=== PATIENT | female | born 1960 | race Caucasian/White ===

== ENCOUNTER 2024-10-15 08:09 | Outpatient (OUT) | payer MEDICARE, OTHER, SELFPAY ==
--- NOTE | 2024-10-15 08:18 | XR_ITS ---
The [address] [address] Patient Name: SUZY SMALL MRN: [id number] date: 1960 Sex: F Assigned Patient Location: [facility] Current Patient Location: [facility] Accession/Order Number: [id number] Exam Date: 10/15/2024 08:26 Report Date: 10/15/2024 14:25 At the request of: KRISTY SEVILLA DPM Procedure: XR foot DANAE min 3V 3 views both feet HISTORY: Chronic right foot tenderness focal months. History of multiple surgeries the right foot. Chronic left foot pain. Left bunion. Right first metatarsal-phalangeal fusion hardware. No complication adequate alignment of the feet. A moderate midfoot degenerative changes. Extensive left first metatarsophalangeal degeneration. 4 mm exposure of the articular surface adjacent soft tissue swelling no acute bony findings. XR/XR foot DANAE min 3V IMPRESSION: No hardware complication. Degenerative change. Left hallux valgus deformity. Impression dictated by: Dennis Larson M.D. 10/15/2024 2:25 PM Dictation Location: [employer] Electronically authenticated by: [id number] Y Date: 10/15/2024 14:25
== END 2024-10-15 08:10 | disposition home or self-care (01) ==
LOC: RAD 08:13
PROVIDERS: PCP Family Medicine; Visit Provider Podiatrist Foot & Ankle Surgery
DX: M79.672 Pain in left foot (principal); M20.12 Hallux valgus (acquired), left foot
CPT/HCPCS: 73630

== ENCOUNTER 2024-11-03 10:55 | Outpatient (OUT) | payer MEDICARE, OTHER, SELFPAY ==
--- OUTSIDE RECORDS SUMMARY | 2024-10-26 09:30 | XMS_ITS | Encounter Summary ---
Author Organization [facility] Address [address] [place] [address] Care Team Providers Care Pattern Technician Name Role Phone NagiSid sanz Bria DO Primary Care Provider [phone] Rasheed Dudley DO Unavailable [phone] Reason for Visit * Reason Comments Gynecologic Exam Medicare off year.LM P: MOOKIE 1997HRT: NoneLast pap 10-21-23 neg.Last mammogram 11-27-23 [facility].Denies breast, urinary, or bowel concerns. Encounter Details Date Type Department Care Team (Late st Contact Info) Description 10/26/2024 9:30 AM EDT [facility] [address] [facility] [address] [place] [phone] Maximilian Leung DO [address] [facility] [address] [place] [address] Vaginal atrophy; Breast cancer screening by mammogram Social History Tobacco Use Types Packs/Day Years Used Date Smoking Tobacco: Former Cigarettes 0.5 10 Q uit: 02/25/2020 Smokeless Tobacco: Never Alcohol Use Standard Drinks/Week Comments Yes 0 (1 standard drink = 0.6 oz pure alcohol) 1-2 drinks less than monthly in the past year, Caffeine intake: 1-2 cups per day coffee, tea AUDIT-C Answer Date Recorded Q1: How often do you have a drink containing alc ohol? Monthly or less 10/26/2024 Q2: How many drinks containi ng alcohol do you have on a typical day when you are drinking? 1 or 2 10/26/2024 Q3: How often do you have si x or more drinks on one occasion? Never 10/26/2024 PHQ-2 Answer Date Recorded Patient Health Questionnaire-2 Score 0 10/26/2024 Comments No Sex and Gender Information Value Date Recorded Sex Assigned at Not on file Legal Sex Female 6:45 PM EDT Gender Identity Not on file Sexual Orientation Not on file documented as of this encounter Last Filed Vital Signs Vital Sign Reading Time Taken Comments Blood Pressure 102/62 10/26/2024 9:16 AM EDT Pulse - - Temperature - - Respiratory Rate - - Oxygen Saturation - - Inhaled Oxygen Concentration - - Weight 68 kg (150 lb) 10/26/2024 9:16 AM EDT Height 167 cm (5' 5.75 ) 10/26/2024 9:16 AM EDT Body Mass Index 24.4 10/26/2024 9:16 AM EDT documented in this encounter Functional Status * Audit-C Score Answer Date of Assessment Author 1 10/26/2024 9:15 AM Pérez Alarcon MA * Question Answer Date of Assessment Author Q1: How often do you have a drink containing alcohol? Monthly or less 10/26/2024 9:15 AM Addis Alarcon sa, MA Q2: How many drinks containing alcohol do you have on a typical day when you are drinking? 1 or 2 10/26/2024 9:15 AM Shawnee Alarcon MA Q3: How often do you have six or more drinks on one occasion? Never 10/26/2024 9:15 AM Shawnee Alarcon MA * Over the past 2 weeks, how often have you been bothered by any of the following problems? Question Answer Date of Assessment Author Little interest or pleasure in doing things Not at all 10/26/2024 9:16 AM Shawnee Alarcon MA Feeling down, depressed, or hopeless Not at all 10/26/2024 9:16 AM Shawnee Alarcon MA Patient Health Questionnaire -2 Score 0 10/26/2024 9:16 AM Shawnee Alarcon MA documented as of this encounter Progress Notes * Anette Rios MA - 10/26/2024 9:30 AM EDT Images from the original note were not included. Maximilian Leung, DO Obstetrics and Gynecology Michelle Nelson 1960 10/26/24 [id number] Yearly Wellness Exam Chief Complaint Patient presents with Gynecologic Exam Medicare off year. LMP: MOOKIE 1997 HRT: None Last pap 10-21-23 neg. Last mammogram 11-27-23 [facility]. Denies breast, urinary, or bowel concerns. Visit Vitals BP 102/62 Ht 5' 5.75 Wt 150 lb BMI 24.40 kg/m?? OB Status Hysterectomy Smoking Status Former BSA 1.78 m?? OB History Para Term AB Living 3 2 1 1 2 SAB IAB Ectopic Multiple Live Births 0 1 2 # Outcome Date GA Lbr Yariel/2nd Weight Sex Type Anes PTL Lv 3 Term 8 lb 15 oz CS-LTranv AMANDA 2 Para 8 lb 10 oz CS-LTranv AMANDA 1 IAB Current Outpatient Medications Medication Sig Dispense Refill alendronate (Fosamax) 70 MG tablet Cholecalciferol (VITAMIN D-3 PO) Take by mouth cyclobenzaprine (Flexeril) 10 MG tablet if needed escitalopram (Lexapro) 10 MG tablet Take 10 mg by mouth Daily escitalopram (Lexapro) 20 MG tablet Take 20 mg by mouth Daily ipratropium (Atrovent) 0.06 % nasal spray Administer 2 sprays into each nostril in the morning and 2 sprays in the evening and 2 sprays before bedtime. 15 mL 3 ipratropium (Atrovent) 0.06 % nasal spray Administer 2 sprays into each nostril every 12 (twelve) hours 15 mL 8 meclizine (Antivert) 25 MG tablet Take 25 mg by mouth every 6 (six) hours if needed for dizziness Multiple Vitamin (multivitamin) tablet Take 1 tablet by mouth Daily rosuvastatin (Crestor) 10 MG tablet Take 10 mg by mouth Daily Tretinoin (Altreno) 0.05 % lotion Apply thin layer to face at bedtime 45 g 11 No current facility-administered medications for this visit. Allergies Allergen Reactions Nsaids GI intolerance Aspirin Nausea Only Codeine Unknown Ibuprofen GI intolerance Prednisone Unknown Past Surgical History: Procedure Laterality Date SECTION, LOW TRANSVERSE x2 COLONOSCOPY x2 EPIDURAL BLOCK INJECTION 2014 3 epidurals-in spine for back FOOT FRACTURE SURGERY Right 2015 FOOT SURGERY Right 2018 screws FOOT SURGERY 05/2021 IR INJECTION Right cortisone-hip SHOULDER SURGERY Right 02/2014 TOE SURGERY Right 2017 great toe - graft - spur removed TOTAL ABDOMINAL HYSTERECTOMY WRIST FRACTURE SURGERY Right 2014 Past Medical History: Diagnosis Date Actinic keratosis Allergic rhinitis Depression Fibroids 1998 History of medical problems 2003 ulcer Hx of herpes simplex infection hx hsv IBS (irritable bowel syndrome) Osteopenia Personal history of other medical treatment tear-right shoulder-steriod shots Seasonal allergies ROS Const: Denies appetite change, fever, chills. Allergy: Denies medication reaction. Ocular: Denies visual acuity change. ENT: Denies hearing change. Endoc: Denies weight loss. Resp: Denies dyspnoea, wheezing. Cardiac: Denies angina, palpitations. GI: Denies nausea, vomiting. Haem: Denies bleeding. : Denies incontinence. MSK: Denies arthralgias, joint oedema. Derm: Denies rash, hair loss. Neuro: Denies ataxia, tremor. Also see HPI for elements of ROS documented therein and for details of positive findings, which shall supersede the foregoing. EXAM GENERAL EXAMINATION alert oriented well developed, well nourished. HEAD: normocephalic atraumatic. EYES: sclera anicteric. EARS: no obvious hearing deficit. NECK/THYROID: neck supple no cervical lymphadenopathy no thyromegaly. LYMPH NODES: no axillary, supraclavicular or inguinal adenopathy. SKIN: warm and dry. HEART: regular rate and rhythm. LUNGS: clear to auscultation bilaterally. CHEST:axillary nodes grossly normal. BREASTS:no masses palpable bilaterally, normal nipples bilaterally - everted - fatty replaced - dense - well supported- axilla negative. ABDOMEN: soft, nontender, nondistended, no masses palpable. BACK: no costovertebral angle tenderness, no obvious scoliosis/kyphosis. FEMALE GENITOURINARY:heavy duty mechanic in room - mildly atrophic - cuff well supported - no studding or induration - side stein negative - adnex negative, stenotic introitus/ vault RECTAL:normal tone , no masses palpable , only small external hemorrhoids. EXTREMITIES no edema. NEUROLOGIC: alert and oriented. PSYCH: cooperative with exam. ICD-10-CM 1. Vaginal atrophy N95.2 Pelvic and breast exam completed. Findings of today's exam discussed with the patient. Continue MSBE. Ca/Vit D recommendations reviewed with the patient. The patient is to contact the office with anychanges to her gynecological condition or any changes with breast or bleeding. The patient is to return in 1 year or as needed Had colonoscopy last year, was told 10 years 2. Breast cancer screening by mammogram Z12.31 Bilateral screening mammogram with tomosynthesis Screening mammogram ordered. Patient to call and schedule. Entered by Anette Rios MA acting as scribe for Dr. Maximilian Leung. Signature Anette Rios MA Date 10/26/24 . Time 9:38 AM . The documentation recorded by the scribe accurately reflects the service(s) I personally performed and the decisions I made. Signature Flynn Leung D.O. Date 10/26/24 Time 5:00PM. documented in this encounter Plan of Treatment Upcoming Encounters Date Type Department Care Team (Late st Contact Info) Description 12/23/2024 11:00 AM EDT Ancillary Procedure [facility] [address] [place] [phone] 03/21/2025 10:35 AM EST Office Visit [facility] [address] [place] [phone] Charley Hdez, [employer]IC [employer] [address] [place] [address] 11/01/2025 9:30 AM EDT Office Visit [facility] [address] [place] [phone] Maximilian Leung DO [address] [place] [address] Scheduled Orders Name Type Priority Associated Diagnoses Orde r Schedule Bilateral screening mammogram with tomosynthesis Imaging Routine Breast cancer screening by mammogram Expected: 11/27/2024, Expires: 12/26/2025 documented as of this encounter Visit Diagnoses Diagnosis Vaginal atrophy Postmenopausal atrophic vaginitis Breast cancer screening by mammogram documented in this encounter Care Teams Pattern Technician Relationship Specialty Start Date End Date Sid Dominguez DO [address] [place] [address] PCP - General 10/15/22 Rasheed Dudley DO [address] [place] [address] Otolaryngology 04/19/24 documented as of this encounter
--- OUTSIDE RECORDS SUMMARY | 2024-11-03 10:59 | XMS_ITS | Clinical Summary ---
Author Organization [facility] Address [address] [place] [address] Phone Care Team Providers Care Collar Worker Name Role Phone Sid Dominguez DO Primary Care Provider [phone] Social History Tobacco Use Types Packs/Day Years Used Date Smoking Tobacco: Never Assessed Comments Unknown Sex and Gender Information Value Date Recorded Sex Assigned at Not on file Legal Sex Female 3:27 PM EST Gender Identity Not on file Sexual Orientation Not on file Plan of Treatment Not on file Care Teams Collar Worker Relationship Specialty Start Date End Date Sid Dominguez DO PCP - General 07/08/19
--- OUTSIDE RECORDS SUMMARY | 2024-11-03 10:59 | XMS_ITS | Encounter Summary ---
Author Organization [facility] Address [address] [place] [address] Care Team Providers Care Nurseryman Assistant Name Role Phone NagiSid sanz Bria ODELL Primary Care Provider [phone] Asa Chowdhury(Hist) Unavailable [phone] Source Comments In the event this information is protected by the Federal Confidentiality of Alcohol and Drug AbusePatient Records regulations: The Federal rules restrict any use of the information to criminally investigate or prosecute any alcohol or drug abuse patient.[facility] Reason for Visit * Reason Comments Results Michelle Nelson mendoza d to review results of genetic testing ordered in 2022. She knows her initial testing was due to family history of cancer, but has had recent cognitive changes and wanted to discuss whether results of genetic testing may be related. Encounter Details Date Type Department Care Team (Late st Contact Info) Description 10/27/2024 Telephone [facility] [address] [id number] Bridgette Christiansen, [facility] [address] [id number] Results (Michelle Nelson called to review results of genetic testing ordered in 2022. She knows her initial testing was due to family history of cancer, but has had recent cognitive changes and wanted to discuss whether results of genetic testing may be related. ) Social History Tobacco Use Types Packs/Day Years Used Date Smoking Tobacco: Never Assessed Area Deprivation Index Answer Date Evan rded National Score (1-100), lower number is lower ri sk 47 03/09/2022 State Score (1-10), lower number is lower risk N ot on file 03/09/2022 Data from: https://www.neighborhoodatlas.medicine.[facility].edu/. Last address used for calculation [address] 03/09/2022 Comments Unknown Sex and Gender Information Value Date Recorded Sex Assigned at Not on file Legal Sex Female 7:30 AM EDT Gender Identity Not on file Sexual Orientation Not on file documented as of this encounter Plan of Treatment Not on file documented as of this encounter Visit Diagnoses Not on filedocumented in this encounter Care Teams Nurseryman Assistant Relationship Specialty Start Date End Date Sid Dominguez DO [facility] [place] [address] PCP - General Family Medicine 07/17/15 Asa Chowdhury(Hist) [address] [place] [address] [place] [address] Referring 12/04/17 documented as of this encounter
--- OUTSIDE RECORDS SUMMARY | 2024-11-03 10:59 | XMS_ITS | Clinical Summary ---
Author Organization [facility] Address [address] [id number] Care Team Providers Care Instrument Assembly Supervisor Name Role Phone Sid Dominguez Primary Care Provider [phone] Social History Tobacco Use Types Packs/Day Years Used Date Smoking Tobacco: Never Assessed Comments Unknown Sex and Gender Information Value Date Recorded Sex Assigned at Not on file Legal Sex Female 1:50 PM EST Gender Identity Female 01/12/2020 1:55 PM EST Sexual Orientation Straight 01/12/2020 1: 55 PM EST Plan of Treatment Health Maintenance Due Date Last Done Comments CT Colonography 1960 Colonoscopy 1960 Colorectal Cancer Screening/Monitoring 1960 Fecal DNA 1960 Fecal occult blood test (FOBT,FIT) 1960 Tetanus: Every 10yrs 1960 Wellness Visit 1961 Depression Screening/Follow- Up (PHQ-2/9) 1970 Hepatitis C Screening 1976 Pneumococcal Vaccine: Age 50 + (1 of 1 - PCV) 2008 Falls Risk Assessment 10/15/2023 COVID-19 Vaccine (1 - 2023-2 5 season) 2024 Influenza Vaccine (#1) 2024 0, 11/23/2018, 10/29/2018, Additional history exists Respiratory Syncytial Virus Immunization: Risk, 60-74 Risk, or 75+ (1 - 1-dose 75+ series) 2033 Zoster Vaccines Completed 10/29/2019, 03/19/2019 [facility]RPPO Care Teams Instrument Assembly Supervisor Relationship Specialty Start Date End Date Sid Dominguez DO [address] [place] [id number] PCP - General Family Medicine 01/12/20
--- OUTSIDE RECORDS SUMMARY | 2024-11-03 10:59 | XMS_ITS | Clinical Summary ---
Author Organization [facility] Address [facility] [place] [address] Care Team Providers Care Aquatic Habitat Biologist Name Role Phone Angelica Sid Bria ODELL Primary Care Provider [phone] Asa Chowdhury(Hist) Unavailable [phone] Allergies Active Allergy Reactions Criticality Noted Date Comments Aspirin Intolerance 07/17/2015 Medications topiramate (TOPAMAX) 50 mg tablet 07/03/2015 Active cyclobenzaprine (FLEXERIL) 10 mg tablet 06/27/2015 Active clonazePAM (KLONOPIN) 0.5 mg tablet 07/03/2015 Active citalopram (CELEXA) 20 mg tablet Take 20 mg by mouth once daily. Active lactulose 10 gram/15 mL (15 mL) soln Take by mouth. Active pantoprazole DR (PROTONIX) 40 mg tablet Take 40 mg by mouth once daily. Active eluxadoline (VIBERZI) 100 mg tab Take 100 mg by mouth twice daily. 60 tablet 3 07/17/2015 Active Active Problems No known active problems Encounters Date Type Department Care Team Description 10/27/2024 Telephone [facility] [address] [id number] Bridgette Christiansen [facility] Results (Michelle Nelson called to review results of genetic testing ordered in 2022. She knows her initial testing was due to family history of cancer, but has had recent cognitive changes and wanted to discuss whether results of genetic testing may be related. ) from Last 3 Months Family History Medical History Relation Comments Esophageal Cancer Maternal Aunt Hx smoking; ca use of Ovarian cancer Maternal Aunt Breast Cancer Maternal Grandmother Dx 40's or 50's, radical mastectomy Cancer Maternal Grandmother Unknown sit e of origin, metastatic cancer dx in 80's. Cause of . Goiter Maternal Grandmother Cancer Maternal Uncle Skin Cancer Maternal cousin 1 Seizures Maternal cousin 2 Breast Cancer Mother Dx ~40, treated with lumpectomy. New breast lump noted in 50's, but not medically addressed and subsequent stage 4 breast ca diagnosed Diabetes Paternal Uncle 1 in 50' s Relation Status Comments Brother Alive Daughter Alive Father (Age 84) Possible heart attack Granddaughter 1 Alive Granddaughter 2 Alive Grandson 1 Alive Grandson 2 Alive Grandson 3 Alive Maternal Aunt (Age 70) Maternal Grandfather 70 's or 80's (unknown cause) Maternal Grandmother (Age 80) Maternal Uncle (Age 68) Maternal cousin 1 Alive Maternal cousin 2 Maternal cousin 3 Alive Maternal cousin 4 Alive Mother (Age 59) Nephew Alive Other Alive Paternal Aunt Paternal Uncle 1 (Age 50) Paternal Uncle 2 (Age 80) Paternal cousin 1 Alive Paternal cousin 2 Alive Paternal cousin 3 Alive Paternal cousin 4 Alive Paternal cousin 5 Alive Paternal cousin 6 Alive Paternal cousin 7 Alive Paternal cousin 8 Alive Paternal cousin 9 Alive Paternal cousin 10 Alive Paternal cousin 11 Alive Paternal cousin 12 Alive Paternal cousin 13 Alive Paternal cousin 14 Alive Paternal cousin 15 Alive Paternal cousin 16 Alive Paternal cousin 17 Alive Paternal cousin 18 Alive Paternal cousin 19 Alive Paternal cousin 20 Alive Paternal cousin 21 Alive Son Alive Social History Tobacco Use Types Packs/Day Years Used Date Smoking Tobacco: Never Assessed Area Deprivation Index Answer Date Evan rded National Score (1-100), lower number is lower ri sk 47 03/09/2022 State Score (1-10), lower number is lower risk N ot on file 03/09/2022 Data from: https://www.neighborhoodatlas.medicine.[facility].edu/. Last address used for calculation [address] 03/09/2022 Comments Unknown Sex and Gender Information Value Date Recorded Sex Assigned at Not on file Legal Sex Female 7:30 AM EDT Gender Identity Not on file Sexual Orientation Not on file Last Filed Vital Signs Vital Sign Reading Time Taken Comments Blood Pressure 118/70 12/17/2017 5:09 PM EDT Pulse 87 12/17/2017 5:09 PM EDT Temperature - - Respiratory Rate 20 12/17/2017 5:09 PM EDT Oxygen Saturation - - Inhaled Oxygen Concentration - - Weight 83 kg (183 lb) 12/17/2017 5:09 PM EDT Height - - Body Mass Index - - Plan of Treatment Health Maintenance Due Date Last Done Comments Anxiety Screening 1976 Depression Screening 1976 Hepatitis C Screening 1976 DTaP,Tdap,Td Vaccine (1 - Tdap) [address] Colonography 10/15/2003 Cologuard (FIT-DNA) 10/15/2003 Colonoscopy 10/15/2003 Colorectal Cancer Screening 10/15/2003 Diabetes Screening 10/15/2003 Fecal Occult Blood 10/15/2003 Lipid Screening 10/15/2003 Sigmoidoscopy 10/15/2003 Pneumococcal Vaccine: 50+ (2 of 2 - PCV) 11/19/2014 11/19/2013 Bone Density Screening 10/15/2023 Advance Directive Discussion 02/25/2024 Medicare Advantage Annual We llness Visit 02/25/2024 Influenza Vaccine (#1) 2024 2, 11/09/2020, 10/29/2019, Additional history exists RSV Vaccine (1 - 1-dose 75+ series) 2033 Shingrix Vaccine Completed 10/29/2019, 03/19/2019 Insurance [facility] MEDICARE ADVANTAGE PPO Care Teams Aquatic Habitat Biologist Relationship Specialty Start Date End Date Sid Dominguez DO [address] [place] [address] PCP - General Family Medicine 07/17/15 Asa Chowdhury(Hist) [address] [facility] [place] [address] Referring 12/04/17
--- OUTSIDE RECORDS SUMMARY | 2024-11-03 10:59 | XMS_ITS | Encounter Summary ---
Author Organization [facility] Address [address] [place] [address] Care Team Providers Care Slasher Operator Name Role Phone Angelica Sid Bria ODELL Primary Care Provider [phone] Asa Chowdhury(Hist) Unavailable [phone] Source Comments In the event this information is protected by the Federal Confidentiality of Alcohol and Drug AbusePatient Records regulations: The Federal rules restrict any use of the information to criminally investigate or prosecute any alcohol or drug abuse patient.[facility] Encounter Details Date Type Department Care Team (Late st Contact Info) Description 10/15/2023 [place] [address] Provider, [facility] Medicare Coverage of Physical Exams Social History Tobacco Use Types Packs/Day Years Used Date Smoking Tobacco: Never Assessed Area Deprivation Index Answer Date Evan rded National Score (1-100), lower number is lower ri sk 47 03/09/2022 State Score (1-10), lower number is lower risk N ot on file 03/09/2022 Data from: https://www.neighborhoodatlas.medicine.[facility].edu/. Last address used for calculation [address] 03/09/2022 Comments Unknown Sex and Gender Information Value Date Recorded Sex Assigned at Not on file Legal Sex Female 7:30 AM EDT Gender Identity Not on file Sexual Orientation Not on file documented as of this encounter Plan of Treatment Not on file documented as of this encounter Visit Diagnoses Not on filedocumented in this encounter Care Teams Slasher Operator Relationship Specialty Start Date End Date Sid Dominguez DO [address] [place] [address] PCP - General Family Medicine 07/17/15 Asa Chowdhury(Hist) [address] [place] [address] [place] [address] Referring 12/04/17 documented as of this encounter
--- OUTSIDE RECORDS SUMMARY | 2024-11-03 10:59 | XMS_ITS | Continuity of Care Document ---
Author Organization [facility] Address [address] [place] [address] Phone [phone] Care Team Providers Care Chef Teacher Name Role Phone Sid Dominguez DO Care Team Information Hammer Fitter U SAURABH Daniels M.D. Care Team Information Rece iver Unavailable Sid Dominguez DO Primary Care Physician Unavailab le Allergies and adverse reactions Active Allergies Criticality Reaction Severity Comments Date Aspirin Unable to assess criticality tears up stomach Severe 12/22/2017 NSAIDs Unable to assess criticality tears up stomach Severe 12/22/2017 Vital Signs Date Vital Result Comment 12/22/2017 10:38am Weight 186.00 lb Per Patie nt Weight 84.370 kg Height 66 inches 5'6 BMI (Body Mass Index) 30.0 kg/m2
--- OUTSIDE RECORDS SUMMARY | 2024-11-03 10:59 | XMS_ITS | Encounter Summary ---
Author Organization [facility] Address [address] [place] [address] Care Team Providers Care Parts Counter Associate Name Role Phone NagiSid sanz Bria DO Primary Care Provider [phone] Rasheed Dudley DO Unavailable [phone] Encounter Details Date Type Department Care Team (Latest Contact Info) Description 10/26/2024 Travel Social History Tobacco Use Types Packs/Day Years [...] on file documented as of this encounter Functional Status * Audit-C Score Answer Date of Assessment Author 1 10/26/2024 9:15 AM EDT Pérez Albarado MA * Question Answer Date of Assessment Author Q1: How often do you have a drink containing alcohol? Monthly or less 10/26/2024 9:15 AM EDT Addis Albarado sa, [place] Q2: How many drinks containing alcohol do you have on a typical day when you are drinking? 1 or 2 10/26/2024 9:15 AM EDT Shawnee Albarado MA Q3: How often do you have six or more drinks on one occasion? Never 10/26/2024 9:15 AM EDT Shawnee Albarado MA * Over the past 2 weeks, how often have you been bothered by any of the following problems? Question Answer Date of Assessment Author Little interest or pleasure in doing things Not at all 10/26/2024 9:16 AM Shawnee Alarcon M A Feeling down, depressed, or hopeless Not at all 10/26/2024 9:16 AM EDT Shawnee Albarado MA Patient Health Questionnaire -2 Score 0 10/26/2024 9:16 AM EDT Shawnee Albarado MA documented as of this encounter Plan of Treatment Upcoming Encounters Date Type Department Care Team (Late st Contact Info) Description 12/23/2024 11:00 AM EDT Ancillary Procedure [facility] [place] [facility] [address] [place] [id number] 03/21/2025 10:35 AM EST Office Visit [facility] [place] [facility] [address] [place] [phone] Charley Hdez, CTO-DIRECTOR [employer] [address] [place] [address] 11/01/2025 9:30 AM EDT Office Visit [facility] [place] [facility] [address] [place] [phone] Maximilian Leung DO [address] [place] [address] documented as of this encounter Visit Diagnoses Not on filedocumented in this encounter Care Teams Parts Counter Associate Relationship Specialty Start Date End Date Sid Dominguez DO [address] [place] [address] PCP - General 10/15/22 Rasheed Dudley, DO [address] [place] [address] Otolaryngology 04/19/24 documented as of this encounter
--- OUTSIDE RECORDS SUMMARY | 2024-11-03 11:00 | XMS_ITS | Patient Health Record ---
Author Organization [facility] [place] Address [address] [place] [address] Care Team Providers Care Carton Counter Feeder Name Role Phone None, Unknown or Primary Care Provider Unavailab le Allergies Allergen (clinical drug ingredient) Drug/Non Drug Allergy documented on EMR Reaction Allergy Type Onset Date Status aspirin Aspirin stomach upset Drug Allergy Act nika Codeine Phosphate Itching Drug Allergy Active Reason For Referral No Information Medications Medication SIG (Take, Route, Frequency, Duration) Notes Start Date End Date Status Alendronate Sodium 70 MG 1 tablet 30 min utes before the first food, beverage or medicine of the day with plain water Orally Active Lexapro 10 MG 1 tablet Orally Once a day Active Lexapro 20 MG 1 tablet Orally Once a day Active Ozempic ( 0.5 MG/DOSE) 0.5 mg injection as directed Subcutaneous Act nika Rosuvastatin Calcium 10 MG 1 tablet Orally Once a day Active Social History Tobacco Use: Social History Observation Description Date Details (start date - stop date) Former Smoker NA - NA Tobacco Use/Smoking Question Answer Notes Patient is a former smoker Plan Of Treatment No Information Insurance Providers Payer Name Payer Address Payer Phone Subscriber Number Group Number Insured Name Patient Relationship to Insured Coverage Start Date Coverage End Date [employer] [place] [employer] [address] [address] [place] [address] [phone] [id number] Michelle Nelson Self - patient is the insured 3 Medical (General) History Medical History History ICD Code Arthritis of ankle, right M19.071 DVT prophylaxis Z29.9 Acute ankle pain, right M25.571 Acute foot pain, right M79.671 Hallux valgus of right foot M20.11 Retained orthopedic hardware Z96.9 Surgical History Surgery Date(Month/Year) Right 1st MPJ fusion with custom 3D impl ant 06/22/21 Hospitalization History Reason Date(Month/Year) See above
--- OUTSIDE RECORDS SUMMARY | 2024-11-03 11:00 | XMS_ITS | Encounter Summary ---
Author Organization [facility] Address [address] [facility] [place] [address] Care Team Providers Care Cocoa Milling Machine Operator Name Role Phone Sid Dominguez DO Primary Care Provider [phone] Rasheed Dudley DO Unavailable [phone] Encounter Details Date Type Department Care Team (Late st Contact Info) Description 10/15/2022 Abstract [facility] [place] [address] [facility] [address] [place] [phone] Maximilian Leung, [address] [facility] [address] [place] [address] Social History Tobacco Use Types Packs/Day Years Used Date Smoking Tobacco: Former Cigarettes Q uit: 02/25/2020 Smokeless Tobacco: Never Tobacco Cessation:Counseling Given: Not Answered Alcohol Use Standard Drinks/Week Comments Yes 0 (1 standard drink = 0.6 oz pure alcohol) 1-2 drinks less than monthly in the past year, Caffeine intake: 1-2 cups per day coffee, tea AUDIT-C Answer Date Recorded Q1: How often do you have a drink containing alc ohol? Monthly or less 10/15/2022 Q2: How many drinks containi ng alcohol do you have on a typical day when you are drinking? 1 or 2 10/15/2022 Q3: How often do you have si x or more drinks on one occasion? Never 10/15/2022 PHQ-2 Answer Date Recorded Patient Health Questionnaire-2 Score 0 10/15/2022 Comments No Sex and Gender Information Value Date Recorded Sex Assigned at Not on file Legal Sex Female 6:45 PM EDT Gender Identity Not on file Sexual Orientation Not on file documented as of this encounter Functional Status * Audit-C Score Answer Date of Assessment Author 1 10/15/2022 9:29 AM EDT Pérez Albarado MA * Question Answer Date of Assessment Author Q1: How often do you have a drink containing alcohol? Monthly or less 10/15/2022 9:29 AM EDT Addis Albarado sa, MA Q2: How many drinks containing alcohol do you have on a typical day when you are drinking? 1 or 2 10/15/2022 9:29 AM ELYSSAT Shawnee Albarado MA Q3: How often do you have six or more drinks on one occasion? Never 10/15/2022 9:29 AM Shawnee Alarcon MA * Over the past 2 weeks, how often have you been bothered by any of the following problems? Question Answer Date of Assessment Author Little interest or pleasure in doing things Not at all 10/15/2022 9:29 AM Shawnee Alarcon MA Feeling down, depressed, or hopeless Not at all 10/15/2022 9:29 AM Shawnee Alarcon MA Patient Health Questionnaire -2 Score 0 10/15/2022 9:29 AM Shawnee Alarcon MA documented as of this encounter Plan of Treatment Upcoming Encounters Date Type Department Care Team (Late st Contact Info) Description 12/23/2024 11:00 AM EDT [facility]illary [facility] [address] [place] [phone] 03/21/2025 10:35 AM EST [facility] [address] [place] [address] Charley Hdez APRN-AMBER [address] [place] [address] 11/01/2025 9:30 AM EDT [facility] [address] [place] [address] Maximilian Leung, DO [address] [place] [address] documented as of this encounter Visit Diagnoses Not on filedocumented in this encounter Care Teams Cocoa Milling Machine Operator Relationship Specialty Start Date End Date Sid Dominguez DO [address] [place] [phone] PCP - General 10/15/22 Rasheed Dudley, [address] [place] [address] Otolaryngology 04/19/24 documented as of this encounter
--- NOTE | 2024-11-03 11:01 | ECG_ITS ---
[facility] Test Date: 2024-11-03 Pat Name: SUZY SMALL Department: Room: - Gender: Female Home Sales Service Professional: : 1960 Requested By: KRISTY SEVILLA Order Number: [id number] Reading MD: AMI AMAYA Measurements Intervals [place] Rate: 77 P: 55 ME: 199 QRS: 19 QRSD: 81 T: 62 QT: 390 QTc: 443 Interpretive Statements SINUS RHYTHM LOW QRS VOLTAGE IN PRECORDIAL LEADS [QRS DEFLECTION < 1.0 mV IN CHEST LEADS] INFERIOR MYOCARDIAL INFARCTION [40+ ms Q WAVE AND/OR ST/T ABNORMALITY IN II/aVF], OF INDETERMINATE AGE No previous ECG available for comparison Electronically Signed On 11-04-2024 13:53:58 EDT by AMI AMAYA
--- NOTE | 2024-11-03 11:42 | PM.PRESUREVA ---
History of Present Illness History of Present Illness Chief complaint: Left Hallux Rigidus Narrative: Patient presents for presurgical testing. Please see HPI from Dr. Prabhakar dated October 22, 2024. Review of Systems ROS Narrative REVIEW OF SYSTEMS: Negative except as stated in HPI, ten or more systems reviewed. Constitutional: No fever, chills, weakness ENT: No sore throat or epistaxis Cardiovascular: No edema, chest pain, or palpitations; admits to dyspnea on exertion Respiratory: No cough or wheezing Gastrointestinal: No abdominal pain, constipation, diarrhea, or vomiting Genitourinary: No dysuria or hematuria Neurological: No numbness, tingling, weakness, or headache Psychiatric: No mood changes PFSH PFS Medical History (Updated 11/03/24 @ 11:43 by Laura Morton NP) Foot pain ?M79.673 - Pain in unspecified foot (ICD-10) COVID-19 (~10/17/24) ?U07.1 - COVID-19 (ICD-10) Back pain ?M54.9 - Dorsalgia, unspecified (ICD-10) Depression ?F32.A - Depression, unspecified (ICD-10) Anxiety ?F41.9 - Anxiety disorder, unspecified (ICD-10) Hip pain ?M25.559 - Pain in unspecified hip (ICD-10) Seasonal allergies ?J30.2 - Other seasonal allergic rhinitis (ICD-10) Heartburn ?R12 - Heartburn (ICD-10) Dyspnea on exertion ?R06.09 - Other forms of dyspnea (ICD-10) Osteoporosis ?M81.0 - Age-related osteoporosis without current pathological fracture (ICD-10) Arthritis ?M19.90 - Unspecified osteoarthritis, unspecified site (ICD-10) Deformity of left foot ?M21.962 - Unspecified acquired deformity of left lower leg (ICD-10) Hallux rigidus, left foot ?M20.22 - Hallux rigidus, left foot (ICD-10) Surgical History (Updated 11/03/24 @ 11:22 by Laura Morton NP) S/P epidural steroid injection ?Z92.241 - Personal history of systemic steroid therapy (ICD-10) History of arthroscopy of shoulder ?Z98.890 - Other specified postprocedural states (ICD-10) History of hysterectomy ?Z90.710 - Acquired absence of both cervix and uterus (ICD-10) History of section ?Z98.891 - History of uterine scar from previous surgery (ICD-10) History of section ?Z98.891 - History of uterine scar from previous surgery (ICD-10) H/O foot surgery (~2021) ?Z98.890 - Other specified postprocedural states (ICD-10) Family History (Updated 11/03/24 @ 11:22 by Laura Morton NP) Other Family history of cancer Family history of diabetes mellitus Family history of hypertension Social History (Updated 11/03/24 @ 11:16 by Laura Morton NP) Within the past year, how often did you have a drink containing alcohol: 2-3 times a week Smoking status: Former smoker Non-prescribed substance use: cannabis (any form) Highest level of school completed/degree received: high school graduate Meds Home Medications and Allergies Home Medications ?Medication ?Instructions ?Recorded ?Confirmed ?Type alendronate 70 mg tablet 70 mg PO QWEEK 11/03/24 11/03/24 History ascorbic acid (vitamin C) 1,000 mg 1 g PO BID 11/03/24 11/03/24 History capsule calcium 600 mg capsule 600 mg PO BID 11/03/24 11/03/24 History cholecalciferol (vitamin D3) 50 2,000 unit PO DAILY 11/03/24 11/03/24 History mcg (2,000 unit) capsule cyclobenzaprine 10 mg tablet 10 mg PO QPM 11/03/24 11/03/24 History elderberry fruit 200 mg capsule 200 mg PO DAILY 11/03/24 11/03/24 History escitalopram oxalate 10 mg tablet 10 mg PO DAILY 11/03/24 11/03/24 History escitalopram oxalate 20 mg tablet 20 mg PO DAILY 11/03/24 11/03/24 History ipratropium bromide 42 mcg (0.06 2 spray intranasal DAILY 11/03/24 11/03/24 History %) nasal spray multivitamin (Daily Multi-Vitamin 1 tab PO DAILY 11/03/24 11/03/24 History tablet) rosuvastatin 10 mg tablet 10 mg PO DAILY 11/03/24 11/03/24 History semaglutide 0.25 mg or 0.5 mg (2 0.25 mg subcut QWEEK 11/03/24 11/03/24 History mg/3 mL) subcutaneous pen injector (Ozempic) Allergies Allergy/AdvReac Type Severity Reaction Status Date / Time aspirin Allergy Nausea Verified 11/03/24 11:07 avocado Allergy Abdominal Verified 11/03/24 11:10 Pain banana Allergy Abdominal Verified 11/03/24 11:10 Pain codeine Allergy Nausea Verified 11/03/24 11:07 prednisone Allergy itchy Verified 11/03/24 11:10 Exam Narrative Exam Narrative: Constitutional: Awake, alert, comfortable, well-appearing, nontoxic, interactive, vital signs as charted Head: Normocephalic, atraumatic Neck: Supple, normal appearance, normal range of motion, no meningeal signs, no lymphadenopathy Respiratory: No respiratory distress, breath sounds clear Cardiovascular: Regular rate and rhythm, strong and regular heart tones Abdomen: Nontender, normal bowel sounds, soft Skin: No rashes or induration, no lesions, only visible skin inspected Neuro: No neurological deficits, normal sensation Psychiatric: Oriented ?3, normal affect Assessment and Plan Assessment and Plan (1) Hallux rigidus, left foot: (2) Deformity of left foot: (3) Foot pain: Plan First MPJ fusion with possible bone graft scheduled with Dr. Prabhakar November 09, 2024.
== END 2024-11-03 10:56 | disposition home or self-care (01) ==
LOC: PST 10:57
PROVIDERS: PCP Family Medicine; Visit Provider Podiatrist Foot & Ankle Surgery
DX: Z01.810 Encounter for preprocedural cardiovascular examination (principal); Z01.818 Encounter for other preprocedural examination; M20.22 Hallux rigidus, left foot
CPT/HCPCS: 93005; G0463

== ENCOUNTER 2024-11-30 09:32 | Outpatient (OUT) | payer MEDICARE, OTHER, SELFPAY ==
--- OUTSIDE RECORDS SUMMARY | 2024-11-18 20:18 | XMS_ITS | Continuity of Care Document ---
Author Organization [facility] [place] Address [address] [place] [address] Phone Care Team Providers Care Watch Caser Name Role Phone Angelica Sid ODELL Primary Care Provider Sid Dominguez DO Attending Provider Keshawn Calderon II, MD Attending Provider [phone] Sung Spence MD Attending Provider Dewey PrabhakarM Referring Provider [phone] Care Teams Patient Care Team Team Status: Active Member Role Status Dates Maximilian Leung DO Specialist Active Sid Dominguez DO Primary Care Provider Active Visit Care Team Team Status: Inactive Member Role Status Dates Sid Dominguez DO Primary Care Provider Active Sta rt: September 14, 2024 End: September 14, 2024 Sid Dominguez DO Attending Provider Active Start: September 14, 2024 End: September 14, 2024 Visit Care Team Team Status: Inactive Member Role Status Dates Sid Dominguez DO Primary Care Provider Active Sta rt: September 21, 2024 End: September 21, 2024 Sid Dominguez DO Attending Provider Active Start: September 21, 2024 End: September 21, 2024 Visit Care Team Team Status: Inactive Member Role Status Dates Sid Dominguez DO Primary Care Provider Active Sta rt: October 21, 2024 End: October 21, 2024 Keshawn Calderon II, MD Attending Provider Active Start: October 21, 2024 End: October 21, 2024 Visit Care Team Team Status: Inactive Member Role Status Dates Sid Dominguez DO Primary Care Provider Active Sta rt: October 21, 2024 End: October 21, 2024 Keshawn Calderon II, MD Attending Provider Active Start: October 21, 2024 End: October 21, 2024 Visit Care Team Team Status: Active Member Role Status Dates Sid Dominguez DO Primary Care Provider Active Sta rt: November 11, 2024 Keshawn Calderon II, MD Attending Provider Active Start: November 11, 2024 Visit Care Team Team Status: Inactive Member Role Status Dates Sid Dominguez DO Primary Care Provider Active Sta rt: November 18, 2024 End: November 18, 2024 Sung Spence MD Attending Provider Activ e Start: November 18, 2024 End: November 18, 2024 Dewey Prabhakar DPM MS Referring Provider Active Start: November 18, 2024 End: November 18, 2024 Visit Care Team Team Status: Inactive Member Role Status Dates Sid Dominguez DO Primary Care Provider Active Sta rt: November 18, 2024 End: November 18, 2024 Sung Spence MD Attending Provider Active Start: October End: November 18, 2024 Chief Complaint and Reason for Visit Chief Complaint Admit Date m25.551 September 14, 2024 12:3 8pm per bpkRIGHT hip pain/xr done September 21, 2024 12:06pm M25.551 - Pain in right hip October 21, 2024 12:25pm NEW RT HIP PAIN WX October 21, 2024 12 :51pm R hip Bursitis November 11, 2024 10:45am Abnormal EKG November 18, 2024 12:40pm Reason for Visit Admit Date Hip pain, right September 21, 2024 12:0 6pm Greater trochanteric bursitis of right h ip October 21, 2024 12:51pm Hyperlipidemia November 18, 2024 12:40pm Foot pain November 18, 2024 12:40pm Pre-operative cardiovascular examination November 18, 2024 12:40pm Allergies, Adverse Reactions, Alerts Allergen Type Severity Reaction Last Updated Verified Status ibuprofen Allergy Mild upset stomach November 18, 2024 12:56pm Yes Active aspirin Allergy Unknown Vomiting, stomach upset November 18, 2024 12:56pm Yes Active codeine Allergy Unknown facial swelling/itchi ng November 18, 2024 12:56pm Yes Active methylprednisolone Allergy Unknown insomnia Sept2024 12:56pm Yes Active prednisone Allergy Unknown stomach upset November 18, 2024 12:56pm Yes Active NSAIDS (Non-Steroidal Anti-Inflamma Allergy Unknown Vomiting November 18, 2024 12:56pm Yes Active Social History Smoking Status Status Start Date End Date Date of Observa tion Ex-smoker (finding) r 2024 12:58pm Observation Status Observation Response Date of Response Legal Sex Female (finding) Sex Assigned At Female September Family History Relationship Condition Age at Onset Recorded Date/T josé miguel father Unknown Diabetes mellitus Unknown grandparent Malignant neoplasm of breast Unknown Malignant neoplasm Unknown mother Malignant neoplasm Unknown Unknown Problems Active Problems Medical Problem Onset Date Status Chronic nasal discharge Unknown Active Insomnia Unknown Active Greater trochanteric bursitis of right hip Unkno wn Active Personal history of nicotine dependence Unknown Active Chronic pain Unknown Active Urethral stricture Unknown Active Nose irritation Unknown Active Seasonal allergies Unknown Active Hyperlipidemia Unknown Active Post-menopausal Unknown Active Over weight Unknown Active Psoriasis Unknown Active Restless leg syndrome Unknown Active Body mass index (BMI) of 25 to 29 in adult Unkno wn Active BMI 23.0-23.9, adult Unknown Active Anxiety and depression Unknown Active Hip pain, right Unknown Active GERD (gastroesophageal reflux disease) Unknown Active Vitamin D deficiency Unknown Active Hypokalemia Unknown Active Inactive/Resolved Problems Medical Problem Onset Date Status BPPV (benign paroxysmal positional vertigo) Unkn own Resolved Dizziness Unknown Resolved Dizziness Unknown Resolved Memory changes Unknown Resolved Epigastric abdominal pain of unknown etiology Un known Resolved Nausea and vomiting Unknown Resolved Medications Medication Status Dose Units Route Directions Qty Days St art Date Stop Date End Date Instructions Adherence Alendronate 70 mg tablet Discont inued 70 MG PO Once a week April 28, 2023 1:13pm May 21, 2024 10:48 am Venlafaxine 37.5 mg capsule,ext ended release 24hr Discont inued 37.5 MG PO Daily May 23, 2023 12:00a m June 27, 2023 10:55 am Venlafaxine 75 mg capsule,ext ended release 24hr Discont inued 75 MG PO Daily June 27, 2023 10:54a m July 17, 2023 12:33 pm Montelukast (Singulair) 10 mg tablet Discont inued 10 MG PO Daily July 18, 2023 12:00a m Octob er 2023 9:57a m Escitalopra m Oxalate (Lexapro) 20 mg tablet Discont inued 20 MG PO Daily 90 Novemb er 2023 2:09pm May 21, 2024 10:48 am take along with Escitalopram 10 mg to equal 30 mg daily Cyclobenzap rine 10 mg tablet Discont inued 10 MG PO Daily at bedtime 90 Novemb er 2023 2:09pm May 21, 2024 10:48 am Prednisone 10 mg tablet Discont inued 10 MG PO .COMPLEX 15 September 15, 2024 12:00a m September 21, 2024 12:54 pm 10 mg orally 1 tab BID x 5 days , 1 tab QD x 5 days; see taper instructions Azithromyci n (Zithromax Z-Shahab) 250 mg tablet Discont inued 0 PO .COMPLEX 6 October 05, 2024 12:00a m Septe banner 2024 12:56 pm For 250 mg dose pack: take 500 mg today (day 1), then 250 mg for 4 days (days 2-5) PO Ondansetron 8 mg tablet,disi ntegrating Discont inued 8 MG PO Q8H as needed for nausea and vomiting 7 May 21, 2018 12:00a m May 23, 2018 12:00 am May 24, 2018 12:02 am Meclizine 25 mg tablet Discont inued 25 MG PO Three times daily as needed for dizziness May 21, 2018 12:00a m April 28, 2023 1:11p m Diazepam (Valium) 5 mg tablet Discont inued 5 MG PO 2-3 TIMES PER DAY as needed for muscle spasm 10 May 21, 2018 12:00a m April 28, 2023 1:11p m Elderberry Fruit 200 mg capsule Active 200 MG PO Daily Octobe r 2023 12:00a m Unknown Meclizine 25 mg Tablet Active 25 MG PO Q6H as needed for Vertigo 60 15 Octobe r 2023 12:00a m Unknown Trazodone 50 mg Tablet Discont inued 1 - 2 TAB PO Daily as needed for Sleep 2016 12:00a m Febru 2018 11:22 pm Oxycodone-A cetaminophe n (Percocet) 5-325 mg Tablet Discont inued 1 TAB PO EVERY 4-6 HOURS as needed for Pain 2016 12:00a m May 21, 2018 5:12a m Naproxen 500 mg Tablet Discont inued 500 MG PO Twice daily as needed for Pain 2016 12:00a m Febru 2018 11:22 pm Escitalopra m Oxalate (Lexapro) 20 mg Tablet Discont inued 1 TAB PO Daily 2016 12:00a m April 28, 2023 1:11p m Oxycodone-A cetaminophe n (Percocet) 5-325 mg tablet Discont inued 1 TAB PO EVERY 4-6 HOURS as needed for pain 20 2016May 21, 2018 5:12a m Omeprazole Magnesium (Prilosec Otc) 20 mg tablet,linda yed release (DR/EC) Discont inued 40 MG PO Daily 84 42 2016 12:00a m 2016 1:00a m 2016 1:04a m Cyclobenzap rine 10 mg tablet Discont inued 10 MG PO Three times daily as needed for muscle spasms 2018 1:00am April 28, 2023 1:11p m Ipratropium Cumming 42 mcg (0.06 %) spray,non-a erosol Discont inued 2 SPRAY INTRAN GIDEON Three times daily May 21, 2024 12:00a m May 21, 2024 10:48 am administer into each nostril Alendronate 70 mg tablet Active 70 MG PO Once a week May 21, 2024 10:47a m Unknown Cyclobenzap rine 10 mg tablet Discont inued 10 MG PO Daily at bedtime May 21, 2024 10:47a m Meghana banner 2024 12:57 pm Escitalopra m Oxalate 10 mg tablet Active 10 MG PO Daily May 21, 2024 10:47a m take along with Escitalopram 20 mg to equal 30 mg . Unknown Escitalopra m Oxalate (Lexapro) 20 mg tablet Active 20 MG PO Daily May 21, 2024 10:47a m take along with Escitalopram 10 mg to equal 30 mg daily Unknown Ipratropium [place] 42 mcg (0.06 %) spray,non-a erosol Active 2 SPRAY INTRAN GIDEON Three times daily May 21, 2024 10:47a m administer into each nostril Unknown Rosuvastati n 10 mg tablet Active 10 MG PO Daily May 21, 2024 10:48a m Unknown Semaglutide (Ozempic) 0.25 mg or 0.5 mg (2 mg/3 mL) pen injector Active 0.25 MG SUBCUT every week May 21, 2024 12:00a m 2 samples Unknown Semaglutide (Weight Loss) (Wegovy) 0.5 mg/0.5 mL pen injector Discont inued 0.5 MG SUBCUT Once a week April 28, 2023 1:00am July 17, 2023 12:34 pm FreeTextSi.5 mL Subcutaneous Once a week; Note: Source Status: Start; Refills: 1; Qty: 2 Milliliter; Provider: Angelica Fraser Calcium Carbonate 500 mg calcium (1,250 mg) tablet Active 500 MG PO Twice daily April 28, 2023 1:00am FreeTextSi tablet with meals Orally Twice a day; Note: Source Status: Taking; Provider: Angelica Lau ( ) Unknown Meloxicam 15 mg tablet Discont inued 15 MG PO Daily April 28, 2023 1:00am Septe banner 2023 12:40 pm FreeTextSi tablet Orally Once a day; Note: Source Status: Not-Takingund efinedPRN; Refills: 1; Qty: 90 Tablet; Provider: Angelica Fraser Cholecalcif kathi (Vitamin D3) 25 mcg (1,000 unit) capsule Active 25 MCG PO Daily April 28, 2023 1:00am Unknown Rosuvastati n 10 mg tablet Discont inued 10 MG PO Daily April 28, 2023 1:00am July 17, 2023 12:55 pm FreeTextSi tablet Orally Once a day; Note: Source Status: Continue; Provider: Angelica Fraser Hydrocortis one Acetate 25 mg suppository Active 25 MG MI Twice daily as needed for hemorrhoids April 28, 2023 1:00am Unknown Alendronate 70 mg tablet Discont inued 70 MG PO Once a week April 28, 2023 1:00am April 28, 2023 1:13p m Escitalopra m Oxalate 10 mg tablet Discont inued 10 MG PO Daily April 28, 2023 1:00am June 09, 2023 1:21p m Cyclobenzap rine 10 mg tablet Discont inued 10 MG PO Daily at bedtime April 28, 2023 1:00am 2023 2:09p m Escitalopra m Oxalate (Lexapro) 20 mg tablet Discont inued 20 MG PO Daily June 09, 2023 12:00a m June 09, 2023 1:21p m Escitalopra m Oxalate 10 mg tablet Discont inued 10 MG PO Daily June 09, 2023 1:20pm May 21, 2024 10:48 am take along with Escitalopram 20 mg to equal 30 mg . Escitalopra m Oxalate (Lexapro) 20 mg tablet Discont inued 20 MG PO Daily June 09, 2023 1:20pm 2023 2:09p m take along with Escitalopram 10 mg to equal 30 mg daily Rosuvastati n 10 mg tablet Discont inued 10 MG PO Daily 2023 12:00a m May 21, 2024 10:48 am Cyclobenzap rine 10 mg tablet Active 10 MG PO Daily at bedtime as needed 2024 12:56p m Unknown Immunizations Immunization Event Date Not Given Reason Dose Number Offset [employer] Apprentice Lot Number Vaccine Information Statement (VIS) Detail Administration Location COVID-19 Ad26.COV2.S (Minus) May 12, 2020 COVID-19 mRNA-1273 (Moderna) December 23, 2020 COVID-19 mRNA Bivalent Booster (Pfizer) December 01, 2021 Quadrivalent Influenza (mdv) November 21, 2016 Fluzone TIV High-Dose 65YR+ December 01, 2023 Influenza, Seasonal, Intradermal, pf November 25, 2015 Influenza vaccine, quadrivalent, adjuvanted February 06, 2023 Influenza Quadrivalent PF MDCK October 29, 2018 Influenza Quadrivalent PF MDCK October 29, 2019 Influenza Quadrivalent PF MDCK February 06, 2023 Pneumococcal Conjugate Vaccine, 20 valent December 01, 2023 Pneumococcal Polysacc. Vaccine, 23 valent November 19, 2013 Quadrivalent Influenza November 29, 2015 Quadrivalent Influenza December 01, 2021 Quadrivalent Influenza November 13, 2016 Quadrivalent Influenza December 24, 2017 Quadrivalent Influenza November 23, 2018 Quadrivalent Influenza November 09, 2020 Zoster Vaccine Recombinant, Adjuvanted March 19, 2019 Zoster Vaccine Recombinant, Adjuvanted October 29, 2019 Tetanus, Diphtheria, Pertussis (Tdap) December 01, 2023 Trivalent Influenza Vaccine November 13, 2016 Trivalent Influenza Vaccine December 24, 2017 Trivalent Influenza Vaccine October 29, 2018 Trivalent Influenza Vaccine October 29, 2019 Procedures Procedure Date Performed Status XR hip RT min 2V(w/wo pelvis)* October 21, 2024 12:25pm completed XR hip RT min 2V(w/wo pelvis)* September 14, 2024 1 2:40pm completed Relevant Diagnostic Tests and/or Laboratory Data Diagnostic Imaging Reports Author Dennis Larson [facility] Authored September 14, 2024 6:44 pm Report Dictated Date/Time Dictated By Status Radiology Report September 14, 2024 6:44pm Dennis Larson DO completed [facility] [place] [address] XRay Report Signed Patient: Michelle Nelson MR#: [id number] : 1960 Acct:[id number] Age/Sex: 63 / F ADM Date: 5 Loc: XD Room: Type: [facility] Attending Dr: Sid Dominguez DO Copies to: Sid Dominguez DO~ Ordering Provider: Sid Dominguez DO Date of Service: 09/14/24 XR/XR hip RT min 2V(w/wo pelvis)*: M25.551 - Pain in right hip 2 views right hip plain film COMPARISON: None HISTORY: Lateral right hip pain with radiation laterally for 3 weeks. ACUTE FINDINGS: None DEGENERATIVE CHANGE: Adequate joint space. No AVN. No articular collapse. Greater trochanter spurring SOFT TISSUE FINDINGS: Unremarkable JOINT EFFUSION: None POSTOP CHANGES: None BONY MINERALIZATION: Adequate XR/XR hip RT min 2V(w/wo pelvis)* IMPRESSION: Greater trochanter spurring. Adequate hip joint. No acute findings. Impression dictated by: Dennis Larson M.D. 09/14/2024 6:45 PM Dictation Location: RADIO-PC-20 Transcribed By: RAY 09/14/241844 Dictated By: Dennis Larson DO 09/14/241843 Signed By: <Electronically signed by Dennis Larson DO in OV> 09/14/241844 Author Mike Wheat [facility] Authored October 21, 2024 3: 22pm Report Dictated Date/Time Dictated By Status Radiology Report October 21, 2024 3:22pm Mike Wheat Jr DO completed [facility] [address] [place] [address] XRay Report Signed Patient: Michelle Nelson MR#: [id number] : 1960 Acct:[id number] Age/Sex: 64 / F ADM Date: 5 Loc: [facility] Room: Type: [facility] Attending Dr: Keshawn Calderon II, MD Copies to: Keshawn Calderon MD~ Ordering Provider: Keshawn Calderon MD Date of Service: 10/21/24 XR/XR hip RT min 2V(w/wo pelvis)*: M25.551 - Pain in right hip RIGHT HIP - 2 views: CLINICAL HISTORY: Right hip pain for months. COMPARISON: Right hip series 09/14/2024 FINDINGS: Minimal degenerative changes involving the hips. No acute bony process. XR/XR hip RT min 2V(w/wo pelvis)* IMPRESSION: MINIMAL DEGENERATIVE CHANGES OF THE HIPS WITHOUT ACUTE BONY PROCESS.. Impression dictated by: Mike Wheat Jr., D.O. 10/21/2024 3:22 PM Dictation Location: RADIO-PC-22 Transcribed By: [facility] 10/21/24 1522 Dictated By: Mike Wheat Jr, DO 10/21/24 1522 Signed By: <Electronically signed by Mike Wheat Jr, DO in OV> 10/21/24 1522 Vital Signs Vital Reading Result Reference Range Collection Date/Time Height 66 [in_i] September 21, 2024 12:24pm Weight 68.49 kg September 21, 2024 12:24pm Heart Rate 93 /min 60-100 September 21, 2024 12:24pm Respiratory rate 16 /min -September 21, 2024 12:24pm Oxygen saturation by Pulse oximetry 96 % 95-100 September 21, 2024 12:2 4pm BP Systolic 118 mm[Hg] 100-140 September 21, 2024 12:24pm BP Diastolic 64 mm[Hg] 60-100 September 21, 2024 12:24pm BMI (Body Mass Index) 24.3 kg/m2 August 252024 12:24pm Height 66 [in_i] October 21 1:05pm Weight 68.94 kg October 21 1:05pm BP Systolic 116 mm[Hg] 100-140 October 21 1:05pm BP Diastolic 78 mm[Hg] 60-100 October 21 1:05pm BMI (Body Mass Index) 24.5 kg/m2 October 21, 2024 1:05pm Heart Rate 103 /min 60-100 November 11, 2024 11:20am Oxygen saturation by Pulse oximetry 97 % 95-100 November 11, 2024 11:20am BP Systolic 103 mm[Hg] 100-140 November 11, 2024 11:20am BP Diastolic 71 mm[Hg] 60-100 November 11, 2024 11:20am Height 66 [in_i] November 18, 2024 1:01pm Weight 69.85 kg November 18, 2024 1:01pm Heart Rate 102 /min 60-100 November 18, 2024 1:01pm Respiratory rate 18 /min -October 262024 1:01pm Oxygen saturation by Pulse oximetry 97 % 95-100 November 18, 2024 1:01pm BP Systolic 110 mm[Hg] 100-140 November 18, 2024 1:01pm BP Diastolic 78 mm[Hg] 60-100 November 18, 2024 1:01pm BMI (Body Mass Index) 24.8 kg/m2 2024 1:01pm Advance Directives Advance Directive Response Recorded Date/ Time Advance Directives Yes October 1:05pm Insurance Providers Guarantor Sascha Morocho Address [address] [facility] [address] Contact Info. Home Phone: Payer Policy Id Subscriber's Name Subscriber Id Effectiv e Date Expiration Date O [id number] Michelle Nelson Sascha [id number] Medicare [id number] Michelle MannSascha marshall [id number] Encounters Encounter Location(s) Arrival/Admit Date Discharge/Depart Date Provider(s) Departed Clinical [facility] September 14, 2024 12:38pm September 14, 2024 12:39pm Bria Leal DO Departed Physician/Provi brigette Office Visit -[facility] September 21, 2024 12:06pm September 21, 2024 1:05pm Bria Leal DO Departed [facility] October 21, 2024 12:25pm October 21, 2024 12:26pm Sascha Martins MD Departed Physician/Provi brigette Office Visit -[facility] October 21, 2024 12:51pm October 21, 2024 1:34pm Sascha Martins MD Registered Recurring -Physical Therapy [place] November 11, 2024 10:45am Sascha Martins MD Departed Physician/Provi brigette Office Visit -[facility] November 18, 2024 12:40pm November 18, 2024 1:21pm Sung Spence MD Departed Clinical -[facility] November 18, 2024 12:45pm November 18, 2024 12:46pm Sung Spence MD Recent Diagnosis Onset Date Admit Date Hip pain, right Unknown September 21, 2024 12:06pm Greater trochanteric bursitis of right hip Unkno wn October 21, 2024 12:51pm Hyperlipidemia Unknown November 18, 2024 12:40pm Foot pain Unknown November 18, 2024 12:40pm Pre-operative cardiovascular examination Unknown November 18, 2024 12:40pm Assessments Author Zabal Philippeolson [facility] Authored September 21, 2024 12:2 8pm The above note written by WENDY Meredith acting as human recorder, note dictated by Dr. Sid Dominguez. Plan of Treatment Author Za Bean [facility] Authored September 21, 2024 12:5 3pm Right hip x-ray results revi ewed with the patient noting greater trochanter spurring. Adequate hip joint. No acute findings. Anatomy of the hip joint reviewed, visual aids provided. The patient has tapered course of Prednisone and is now taking one table daily that she will complete in the next few days. Oral steroid is helping to take the edge off but is not resolving the pain, she does has a mild adverse reaction of stomach upset with NSAIDS and corticosteroids.Patient advised to stop the oral steroid. I have offered a cortisone injection , the patient is in agreement, therefore After consent form was signed and under sterile technique we used a skin refrigerant to the hip area. 1 cc Kenalog combined with 8 cc of Xylocaine was injected into the greater trochanteric bursa. Pt tolerated procedure well. We placed the Hip through range of motion post injection. Home going instructions were provided verbally. Band-Aid dressing was applied. Patient advised to contact the office if pain persists and we will consider an orthopedic referral. Author Sung Samayoajoann [facility] Authored November 18, 2024 2:06pm Assessment: #Preop risk stratification ahead of elective 1st MPJ fusion of her left foot with Dr. Prabhakar in 11/2024 - was sent to us due to abnormal EKG. #Dyspnea on significant exertion - no accompanying symptoms. Is due to deconditioning. #Other: HLD, hypokalemia, insomnia, psoriasis, restless leg syndrome, tobacco use, GERD, chronic pain and obesity EKG 12/05/23 - NSR, 76 bpm, nonspecific t wave changes. EKG 11/18/2024: sinus tachycardia, no ischemia, 102 bpm, non-pathologic q waves noted inferiorly. Plan: -RCRI score 0. Surgery is low risk. Patient can perform > 4 METS. No indication for further cardiac testing prior to surgery. -She is at her baseline state of health. Recommend a program of exercise to improve conditioning. -She should continue routine follow up with her PCP, Dr. Dominguez -Follow up with [facility] Cardiology as needed. Future Tests Future scheduled test information is unavailable Pending Tests Pending diagnostic test information is unavailable Future Visits Future appointment information is unavailable Referrals to Other Providers Referral information is unavailable Future Procedures Future procedure information is unavailable Future Medications Future medication information is unavailable Patient Instructions Patient instructions are unavailable
--- OUTSIDE RECORDS SUMMARY | 2024-11-30 09:35 | XMS_ITS | Encounter Summary ---
Author Organization [facility] Address [address] [place] [address] Care Team Providers Care Hvac Manager Name Role Phone Sid Dominguez DO Primary Care Provider [phone] Rasheed Dudley DO Unavailable [phone] Encounter Details Date Type Department Care Team (Late st Contact Info) Description 10/15/2022 Abstract [facility] [address] [facility] [address] [place] [id number] Maximilian Leung, [address] [facility] [address] [place] [address] Social History Tobacco Use Types Packs/Day Years [...] [address] [place] [phone] 03/21/2025 10:35 AM EST [facility] [address] [place] [address] Charley Hdez APRN-AMBER [address] [place] [address] 11/01/2025 9:30 AM EDT Office [facility] [address] [place] [address] Maximilian Leung, DO [address] [place] [address] documented as of this encounter Visit Diagnoses Not on filedocumented in this encounter Care Teams Hvac Manager Relationship Specialty Start Date End Date Sid Dominguez DO [address] [place] [id number] PCP - General 10/15/22 Rasheed Dudley, [address] [place] [address] Otolaryngology 04/19/24 documented as of this encounter
--- OUTSIDE RECORDS SUMMARY | 2024-11-30 09:35 | XMS_ITS | Clinical Summary ---
Author Organization [facility] Address [address] [place] [address] Care Team Providers Care Sewing Supervisor Name Role Phone NagiSid sanz Bria DO Primary Care Provider [phone] Rasheed Dudley Carmita DO Unavailable [phone] Allergies Active Allergy Reactions Criticality Noted Date Comments Aspirin Nausea Only 10/15/2022 Codeine Unknown 10/15/2022 Ibuprofen GI intolerance 02/19/2023 Nsaids GI intolerance High 10/15/2022 Prednisone Unknown 10/15/2022 Medications escitalopram (Lexapro) 10 MG tablet Take 10 mg by mouth Daily Active escitalopram (Lexapro) 20 MG tablet Take 20 mg by mouth Daily Active alendronate (Fosamax) 70 MG tablet 3 Active Multiple Vitamin (multivitamin) tablet Take 1 tablet by mouth Daily Active Cholecalciferol (VITAMIN D-3 PO) Take by mouth Active cyclobenzaprine (Flexeril) 10 MG tablet if needed 4 Active rosuvastatin (Crestor) 10 MG tablet Take 10 mg by mouth Daily Active meclizine (Antivert) 25 MG tablet Take 25 mg by mouth every 6 (six) hours if needed for dizziness Active Tretinoin (Altreno) 0.05 % lotionIndicatio ns:Rhytides Apply thin layer to face at bedtime 45 g 11 5 Active ipratropium (Atrovent) 0.06 % nasal sprayIndication s:Rhinorrhea Administer 2 sprays into each nostril in the morning and 2 sprays in the evening and 2 sprays before bedtime. 15 mL 3 5 Active ipratropium (Atrovent) 0.06 % nasal sprayIndication s:Chronic rhinitis Administer 2 sprays into each nostril every 12 (twelve) hours 15 mL 8 5 Active Active Problems Problem Noted Date Diagnosed Date Anxiety and depression 08/11/2023 Asthmatic bronchitis 08/11/2023 BMI 23.0-23.9, adult 08/11/2023 BPPV (benign paroxysmal positional vertigo) 07/25 Chronic pain 08/11/2023 Epigastric abdominal pain of unknown etiology Former smoker 08/11/2023 GERD (gastroesophageal reflux disease) Hyperlipidemia 08/11/2023 Hypokalemia 08/11/2023 Insomnia 08/11/2023 Memory changes 08/11/2023 Psoriasis 08/11/2023 Restless leg syndrome 08/11/2023 Seasonal allergies 08/11/2023 Urethral stricture 08/11/2023 Vitamin D deficiency 08/11/2023 Cervicalgia 02/21/2023 Balance disorder 02/19/2023 Chronic rhinitis 10/15/2022 Osteoarthritis of first metatarsophalangeal join t 10/15/2022 Postmenopausal atrophic vaginitis 10/15/2022 Primary localized osteoarthrosis of ankle and fo ot 10/15/2022 Resolved Problems Problem Noted Date Diagnosed Date Resolved Date Nausea and vomiting 04/02/2024 04/02/19 Chronic nasal discharge 04/02/2024 02/0 08/2024 Nose irritation 04/02/2024 04/02/2024 Personal history of nicotine dependence 04/02/2024 04/02/2024 Encounters Date Type Department Care Team Description 10/26/2024 9:30 AM EDT Office Visit KRISTA MONIQUE [address] [place] [address] Maximilian Leung, Vaginal atrophy; Breast cancer screening by mammogram 10/26/2024 Travel from Last 3 Months Immunizations Immunization Administration Dates Next Due Influenza, High Dose Seasona l, Preservative Free 12/01/2023 Influenza, Seasonal, Quadriv alent, Adjuvanted 02/06/2023 Influenza, injectable, MDCK, preservative free, quadrivalent 02/06/2023,10/29/2019,10/29/2018 Influenza, injectable, quadrivalent 11/21/2016 Influenza, injectable, quadr ivalent, preservative free 12/01/2021,11/09/2020,11/23/2018,12/24,11/13/2016,11/29/2015 Influenza, seasonal, injectable 10/29/19 20,10/29/2018,12/24/2017,11/13 Influenza, seasonal, intrade rmal, preservative free 11/25/2015 Moderna Bivalent Booster Vaccination 12/01/2021 Pneumococcal Conjugate PCV 20 12/01/2023 Pneumococcal Polysaccharide PPSV23 11/19/2013 [facility] SARS-[facility]-2 Vacc[facility] 12/01/2021 Tdap 12/01/2023 Zoster, Recombinant 10/29/2019,03/19/2019 Family History Medical History Relation Name Comments Cancer Maternal Grandmother Magda Cancer Mother Marlen Cancer Mother's Sister Kylie Melanoma Other Relation Name Status Comments Father Maternal Grandmother Magda Mother Marlen Mother's Sister Kylie Other Social History Tobacco Use Types Packs/Day Years [...] Pressure 102/62 10/26/2024 9:16 AM EDT Pulse 95 12/11/2023 11:00 AM EDT Temperature - - Respiratory Rate 16 12/11/2023 11:00 AM EDT Oxygen Saturation 97% 12/11/2023 11:00 AM EDT Inhaled Oxygen Concentration - - Weight 68 kg (150 lb) 10/26/2024 9:16 AM EDT Height 167 cm (5' 5.75 ) 10/26/2024 9:16 AM EDT Body Mass Index 24.4 10/26/2024 9:16 AM EDT Plan of Treatment Upcoming Encounters Date Type Department Care Team (Late st Contact Info) Description 12/23/2024 11:00 AM EDT Ancillary Procedure [facility] [address] [place] [phone] 03/21/2025 10:35 AM EST Office Visit [facility] [address] [place] [address] Charley Hdez, REHABILITATION CASE COORDINATOR-MARINE TECHNICIAN [address] [place] [address] 11/01/2025 9:30 AM EDT Office Visit [facility] [address] [place] [address] Maximilian Leung DO [address] [place] [address] Health Maintenance Due Date Last Done Comments CT Colonography 1960 Colonoscopy 1960 Colorectal Cancer Screening 1960 FIT-DNA 1958 FIT 1958 FOBT 1960 Sigmoidoscopy 1960 Influenza Vaccine (#1) 2024 , 02/06/2023, 02/06/2023, Additional history exists Mammogram 11/26/2024 11/27/2023, 11/25, 12/19/2020, Additional history exists Pneumococcal Vaccine: 65+ Years Completed 4, 11/19/2013 Procedures Procedure Name Priority Date/Time Associated Diagnosis Comments BI MAMMOGRAM SCREENING TOMOSYNTHESIS BILATERAL Routine 11/27/2023 10:36 AM EDT Breast cancer screening by mammogram from Last 3 Months or Most Recently Relevant to Health Maintenance Results * Bilateral screening mammogram with tomosynthesis (11/27/2023 10:36 AM EDT) Anatomical Region Laterality Modality Breast Bilateral Mammography 11/28/2023 10:0 7 AM EDT Impressions 11/28/2023 10:13 AM EDT Impression: No specific evidence of malignancy seen in either breast. Breast Density: There are scattered areas of fibroglandular density BiRads: BIRADS 2 - Benign Recommended follow-up: Routine Screening Mamm ELECTRONICALLY SIGNED BY: Rip Amaral M.D. Narrative 11/28/2023 10:13 AM EDT Examination: BI MAMMOGRAM SCREENING TOMOSYNTHESIS BILATERAL Clinical History: screening Technique: Screening digital mammography study of both breasts was performed with 2-D and 3-D tomosynthesis imaging. Study was compared to the prior exam dated 12/21/2021. Findings: There is no evidence of interval dominant spiculated mass, grouped microcalcifications, or skin thickening which would be suggestive of malignancy. Likely intramammary lymph node in the superolateral aspect of each breast similar to the prior study. Axillary lymph nodes noted on the left. Procedure Note Rip Amaral MD - 11/28/2023 Examination: BI MAMMOGRAM SCREENING TOMOSYNTHESIS BILATERAL Clinical History: screening Technique: Screening digital mammography study of both breasts wasperformed with 2-D and 3-D tomosynthesis imaging. Study was compared tothe prior exam dated 12/21/2021. Findings: There is no evidence of interval dominant spiculated mass,grouped microcalcifications, or skin thickening which would be suggestiveof malignancy. Likely intramammary lymph node in the superolateral aspectof each breast similar to the prior study. Axillary lymph nodes noted onthe left. IMPRESSION: Impression: No specific evidence of malignancy seen in either breast. Breast Density: There are scattered areas of fibroglandular density BiRads: BIRADS 2 - Benign Recommended follow-up: Routine Screening Mamm ELECTRONICALLY SIGNED BY: Rip Amaral M.D. Maximilian Leung DO IMG BI PROCEDURES Final Resu lt from Last 3 Months or Most Recently Relevant to Health Maintenance Insurance [employer] [place] MEDICARE Care Teams Sewing Supervisor Relationship Specialty Start Date End Date Sid Dominguez DO [address] [place] [phone] PCP - General 10/15/22 Rasheed Dudley DO [address] [place] [address] Otolaryngology 04/19/24
--- OUTSIDE RECORDS SUMMARY | 2024-11-30 09:35 | XMS_ITS | Encounter Summary ---
Author Organization [facility] Address [address] [place] [address] Care Team Providers Care Gl Accountant Name Role Phone NagiSid sanz Bria ODELL Primary Care Provider [phone] Asa Chowdhury(Hist) Unavailable [phone] Source Comments In the event this information is protected by the Federal Confidentiality of Alcohol and Drug AbusePatient Records regulations: The Federal rules restrict any use of the information to criminally investigate or prosecute any alcohol or drug abuse patient.[facility] Reason for Visit * Reason Comments [...] st Contact Info) Description 10/27/2024 Telephone [facility] [address] [phone] Bridgette Christiansen, [facility] [address] [id number] Results (Michelle Nelson called to review results [...] N ot on file 03/09/2022 Data from: https://www.neighborhoodatlas.medicine.[facility].edu/. Last address used for calculation [address] 03/09/2022 Comments Unknown Sex and Gender Information Value Date Recorded Sex Assigned at Not on file Legal Sex Female 7:30 AM EDT Gender Identity Not on file Sexual Orientation Not on file documented as of this encounter Plan of Treatment Not on file documented as of this encounter Visit Diagnoses Not on filedocumented in this encounter Care Teams Gl Accountant Relationship Specialty Start Date End Date Sid Dominguez DO [facility] [place] [address] PCP - General Family Medicine 07/17/15 Asa Chowdhury(Hist) [address] [place] [address] [place] [address] Referring 12/04/17 documented as of this encounter
--- OUTSIDE RECORDS SUMMARY | 2024-11-30 09:35 | XMS_ITS | Clinical Summary ---
Author Organization [facility] Address [facility] [place] [address] Care Team Providers Care Manager Real Estate Name Role Phone Angelica Sid Bria ODELL Primary Care Provider [phone] Asa Chowdhury(Hist) Unavailable [phone] Allergies Active Allergy Reactions Criticality Noted Date [...] Type Department Care Team Description 10/27/2024 Telephone [facility] [address] [phone] Bridgette Christiansen [facility] Results (Michelle Caicedo joanna called to review results of genetic testing [...] N ot on file 03/09/2022 Data from: https://www.neighborhoodatlas.medicine.[facility].edu/. Last address used for calculation [address] 03/09/2022 Comments Unknown Sex and Gender [...] Medicare Advantage Annual We llness Visit 02/25/2024 Covid-19 Vaccine (4 - 2024-2 6 season) 2024 12/01/2021, 12/23/2020, 05/12/2020 Influenza Vaccine (#1) 2024 , 11/09/2020, 10/29/2019, Additional history exists RSV Vaccine (1 - 1-dose 75+ series) 2033 Shingrix Vaccine Completed 10/29/2019, 03/19/2019 Insurance [facility] MEDIC[facility] ADVANTAGE PPO Care Teams Manager Real Estate Relationship Specialty Start Date End Date Sid Dominguez DO [address] [place] [address] PCP - General Family Medicine 07/17/15 Asa Chowdhury(Hist) [address] [place] [address] [place] [address] Referring 12/04/17
--- OUTSIDE RECORDS SUMMARY | 2024-11-30 09:35 | XMS_ITS | Clinical Summary ---
Author Organization [facility] Address [address] [place] [address] Phone Care Team Providers Care Home Maker Name Role Phone Sid Dominguez DO Primary Care Provider [phone] Social History Tobacco Use Types Packs/Day Years Used Date Smoking Tobacco: Never Assessed Comments Unknown Sex and Gender Information Value Date Recorded Sex Assigned at Not on file Legal Sex Female 3:27 PM EST Gender Identity Not on file Sexual Orientation Not on file Plan of Treatment Not on file Care Teams Home Maker Relationship Specialty Start Date End Date Sid Dominguez DO PCP - General 07/08/19
--- OUTSIDE RECORDS SUMMARY | 2024-11-30 09:35 | XMS_ITS | Patient Health Record ---
Author Organization [facility] Address [address] [address], [place] [address] Care Team Providers Care Welder Apprentice Name Role Phone Dewey Prabhakar [phone] Allergies Allergen (clinical drug ingredient) Drug/Non Drug Allergy documented on EMR Reaction Allergy Type Onset Date Status aspirin Aspirin stomach upset Drug Allergy Act nika codeine Codeine stomach upset Drug Allergy Act nika Reason For Referral No Information Medications Medication SIG (Take, Route, Frequency, Duration) Notes Start Date End Date Status Escitalopram Oxalate 20 MG Tablet TAKE 1 TABLET BY MOUTH ONCE DAILY, TAKE ALONG WITH ESCITALOPRAM 10 MG TO EQUAL 30 MG DAILY Oral; Duration: 90 Days Active Escitalopram Oxalate 10 MG Tablet TAKE 1 TABLET BY MOUTH ONCE DAILY, TAKE ALONG WITH ESCITALOPRAM 20 MG TO EQUAL 30 MG DAILY Oral; Duration: 90 Days Active Social History Section Notes: Patient is a former smoker. Social alcohol use. Patient is a former smoker. Social alcohol use. Problems Problem Type SNOMED Code ICD Code Onset Dates Problem Status W/U Status Risk Notes Problem Acquired hallux rigidus (4046988) Hallux rigidus, left foot (M20.22) Active confirmed Problem Acquired deformity of left foot (disorder) (006708941) Other acquired deformities of left foot (M21.6X2) Active confirmed Encounters Encounter Location Date Provider Diagnosis [facility] [address] [address], [place] [address] 10/22/2024 Dewey Prabhakar Hallux rigidus, left foot M20.22 and Other acquired deformities of left foot M21.6X2 [facility] [address] [address] 11/04/2024 Dewey Merlenenabila Hallux rigidus, left foot M20.22 ; Other acquired deformities of left foot M21.6X2 and Abnormal EKG R94.31 Assessments Encounter Date Diagnosis (ICD Code) Assessment Notes Treatment Notes Treatment Clinical Notes Section Notes 10/22/2024 Hallux rigidus, left foot (ICD-10 - M20.22) Patient presents with persistent left foot pain that causes daily pain and prevents activities on a regular basis. Shoe modification and toe spacers have not helped. I reviewed the risks and benefits of surgical intervention and specifically discuss 1st mpj fusion with possible bone graft. I discuss the recovery involved and post-op timeline. She will consider her options and will call if she would like to proceed with surgery on her left foot. 10/22/2024 Other acquired deformities of left foot (ICD-10 - M21.6X2) 11/04/2024 Hallux rigidus, left foot (ICD-10 - M20.22) Patient was scheduled for 1st MPJ fusion which has to be delayed due to EKG changes. I did briefly review the surgical plan and post operative course. Surgical paperwork has been filled out and will wait to hear from cardiology and anesthesia. I did reach out to Michelle Gurrola's PCP, regarding the EKG changes and delay in surgical intervention. 11/04/2024 Other acquired deformities of left foot (ICD-10 - M21.6X2) 11/04/2024 Abnormal EKG (ICD-10 - R94.31) Referral to Dr. Spence - [facility] Cardiology for surgical clearance and any additional testing. Patient did note during PAT testing that she does get short of breath which she attributes to being out of shape. 10/22/2024 Other I ordered and reviewed xrays of both feet. Her right foot show stable HW and 3DP implant with fusion of 1st MPJ. No change in alignment as compared to xrays obtained in 2021. Xrays of left foot show joint space narrowing of 1st MPJ with 1-2 intermet angle within normal limits. Lateral projections shows elevation of the 1st metatarsal consistent with forefoot varus. Plan Of Treatment No Information Insurance Providers Payer Name Payer Address Payer Phone Subscriber Number Group Number Insured Name Patient Relationship to Insured Coverage Start Date Coverage End Date Medicare of [place] J[address] [place], [place] [id number] Michelle Nelson Self - patient is the insured Medical [facility] [address] [place], [place] [id number] Michelle Nelson Self - patient is the insured Medical (General) History Medical History History ICD Code Arthritis Surgical History Surgery Date(Month/Year) First MPJ Fusion w/ 3D printed implant 2 022
--- OUTSIDE RECORDS SUMMARY | 2024-11-30 09:35 | XMS_ITS | Clinical Summary ---
Author Organization [facility] Address [address] [place] [address] Care Team Providers Care Cattle Alley Worker Name Role Phone Sid Dominguez Bria ODELL Primary Care Provider Social History Tobacco Use Types Packs/Day Years [...] 1960 Colonoscopy 1958 Colorectal Cancer Screening/Monitoring 1958 Dexa Scan 1958 Fecal DNA 1958 Fecal occult blood test (FOBT,FIT) 1958 Tetanus: Every 10yrs 1958 Wellness Visit 1961 Depression Screening/Follow- Up (PHQ-2/9) 1970 Hepatitis C Screening 1976 Pneumococcal Vaccine: Age 50 + (1 of 1 - PCV) 2008 Falls Risk Assessment 10/15/2023 COVID-19 Vaccine (1 - 2023-2 5 season) 2024 Influenza Vaccine (#1) 2024 , 11/23/2018, 10/29/2018, Additional history exists Respiratory Syncytial Virus Immunization: Risk, 60-74 Risk, or 75+ (1 - 1-dose 75+ series) 2033 Zoster Vaccines Completed 10/29/2019, 03/19/[address] [facility]CORE PPO/RPPO Care Teams Cattle Alley Worker Relationship Specialty Start Date End Date Sid Dominguez DO [address] [place] [address] PCP - General Family Medicine 01/12/20
--- OUTSIDE RECORDS SUMMARY | 2024-11-30 09:35 | XMS_ITS | Encounter Summary ---
Author Organization [facility] Address [address] [place] [address] Care Team Providers Care Respiratory Manager Name Role Phone Angelica Sid Bria ODELL Primary Care Provider [phone] Asa Chowdhury(Hist) Unavailable [phone] Source Comments In the event this information is protected by the Federal Confidentiality of Alcohol and Drug AbusePatient Records regulations: The Federal rules restrict any use of the information to criminally investigate or prosecute any alcohol or drug abuse patient.[facility] Encounter Details Date Type Department Care Team (Late st Contact Info) Description 10/15/2023 [place] [address] Provider, [facility] Medicare Coverage of Physical Exams [...] [email or web address] Last address used for calculation [address] 03/09/2022 Comments Unknown Sex and Gender Information Value Date Recorded Sex Assigned at Not on file Legal Sex Female 7:30 AM EDT Gender Identity Not on file Sexual Orientation Not on file documented as of this encounter Plan of Treatment Not on file documented as of this encounter Visit Diagnoses Not on filedocumented in this encounter Care Teams Respiratory Manager Relationship Specialty Start Date End Date Sid Dominguez DO [address] [place] [address] PCP - General Family Medicine 07/17/15 Asa Chowdhury(Hist) [address] [place] [address] [place] [address] Referring 12/04/17 documented as of this encounter
--- OUTSIDE RECORDS SUMMARY | 2024-11-30 09:35 | XMS_ITS | Patient Health Record ---
Author Organization [facility] Address [address] [place] [address] Care Team Providers Care Bulk Plant Operator Name Role Phone None, Unknown or Primary [...] Date [employer] [place] [employer] AD[place] [address] [address] [place] [address] [id number] Michelle Nelson Self - patient [...]
== END 2024-11-30 09:33 | disposition home or self-care (01) ==
LOC: PST 09:32
PROVIDERS: PCP Family Medicine; Visit Provider Podiatrist Foot & Ankle Surgery
DX: Z01.818 Encounter for other preprocedural examination (principal); M20.22 Hallux rigidus, left foot

== ENCOUNTER 2024-12-07 09:25 | Day surgery (SDC) | payer MEDICARE, OTHER, SELFPAY ==
[2024-11-03 11:37] VITALS: BP 118/58; PULSE 94; TEMP 36.4; O2SAT 97; BMI 24.2
--- NOTE | 2024-12-07 | XR_ITS ---
The [address] [address] Patient Name: SUZY SMALL MRN: [id number] date: 1960 Sex: F Assigned Patient Location: [facility] Current Patient Location: Accession/Order Number: [id number] Exam Date: 12/07/2024 10:45 Report Date: 12/07/2024 11:18 At the request of: KRISTY SEVILLA DPSascha Procedure: XR foot LT min 3V LEFT FOOT - 3 views CLINICAL HISTORY: Injury to first digit. COMPARISON: None FINDINGS: Soft tissue swelling is noted involving the first digit. No acute bony process is seen. Mild degenerative changes involving the MTP joint without bony erosions. XR/XR foot LT min 3V IMPRESSION: SOFT TISSUE SWELLING INVOLVING THE FIRST DIGIT WITH MILD DEGENERATIVE CHANGES INVOLVING THE MTP JOINT. NO ACUTE BONY PROCESS. Impression dictated by: Mike Wheat Jr., D.O. 12/07/2024 11:18 AM Dictation Location: [employer] Electronically authenticated by: [id number] Y Date: 12/07/2024 11:18
--- OUTSIDE RECORDS SUMMARY | 2024-12-07 09:29 | XMS_ITS | Encounter Summary ---
Author Organization [facility] Address [address] [facility] [place] [address] Care Team Providers Care Daycare Teacher Name Role Phone Sid Dominguez DO Primary Care Provider [phone] Rasheed Dudley DO Unavailable [phone] Encounter Details Date Type Department Care Team (Late st Contact Info) Description 10/15/2022 Abstract [facility] [address] [facility] [address] [place] [phone] Maximilian Leung, [address] [facility] [address] [place] [address] Social History Tobacco Use Types Packs/Day Years [...] as of this encounter Functional Status * AUDIT-C Score Answer Date of Assessment Author 1 [...] [address] [place] [phone] 03/21/2025 10:35 AM EST Office [facility] [address] [place] [address] Charley Hdez APRN-AMBER [address] [place] [address] 11/01/2025 9:30 AM EDT Office Visit [facility] [address] [place] [address] Maximilian Leung, DO [address] [place] [address] documented as of this encounter Visit Diagnoses Not on filedocumented in this encounter Care Teams Daycare Teacher Relationship Specialty Start Date End Date Sid Dominguez DO [address] [place] [phone] PCP - General 10/15/22 Rasheed Dudley, [address] [place] [address] Otolaryngology 04/19/24 documented as of this encounter
--- OUTSIDE RECORDS SUMMARY | 2024-12-07 09:29 | XMS_ITS | Clinical Summary ---
Author Organization [facility] Address [address] [place] [address] Care Team Providers Care Furniture Repair Technician Name Role Phone NagiSid sanz Bria DO Primary Care Provider [phone] Rasheed Dudley Carmita DO Unavailable [phone] Allergies Active Allergy Reactions Criticality Noted Date [...] MONIQUE [address] [place] [address] Maximilian Leung, Vaginal atrophy; Breast [...] PCV 20 12/01/2023 Pneumococcal Polysaccharide PPSV23 11/19/2013 [facility] SARS-CoV-2 Vaccination 12/01/2021 Tdap 12/01/2023 Zoster, [...] [facility] [address] [place] [address] 03/21/2025 10:35 AM EST Office Visit [facility] [address] [place] [address] Charley Hdez, COAL INSPECTOR-BENCH WORKER HOLLOW HANDLE [address] [place] [address] 11/01/2025 9:30 AM EDT Office Visit [facility] [address] [place] [address] Maxiimlian Leung DO [address] [place] [address] Health Maintenance Due Date Last Done Comments [...] Recently Relevant to Health Maintenance Insurance [facility] MEDICARE Care Teams Furniture Repair Technician Relationship Specialty Start Date End Date Sid Dominguez DO [address] [place] [phone] PCP - General 10/15/22 Rasheed Dudley DO [address] [place] [address] Otolaryngology 04/19/24
--- OUTSIDE RECORDS SUMMARY | 2024-12-07 09:29 | XMS_ITS | Clinical Summary ---
Author Organization [facility] Address [address] [place] [address] Phone Care Team Providers Care Regional Hr Manager Name Role Phone Sid Dominguez DO Primary Care Provider [phone] Social History Tobacco Use Types Packs/Day Years Used Date Smoking Tobacco: Never Assessed Comments Unknown Sex and Gender Information Value Date Recorded Sex Assigned at Not on file Legal Sex Female 3:27 PM EST Gender Identity Not on file Sexual Orientation Not on file Plan of Treatment Not on file Care Teams Regional Hr Manager Relationship Specialty Start Date End Date Sid Dominguez DO PCP - General 07/08/19
--- OUTSIDE RECORDS SUMMARY | 2024-12-07 09:29 | XMS_ITS | Clinical Summary ---
Author Organization [facility] Address [address] [place] [address] Care Team Providers Care Hat Body Sorter Name Role Phone Sid Dominguez Bria ODELL Primary Care Provider [phone] Social History Tobacco Use Types Packs/Day Years [...] Zoster Vaccines Completed 10/29/2019, 03/19/2019 [facility]/RPPO Care Teams Hat Body Sorter Relationship Specialty Start Date End Date Sid Dominguez DO [address] [place] [id number] PCP - General Family Medicine 01/12/20
[2024-12-07 09:40] LABS: Hematocrit 39.4 % (36.0-48.0); Hemoglobin 13.5 g/dL (12.0-16.0); Immature Granulocytes Abs Auto 0.01 10^3/uL (0.00-0.03); Immature Granulocytes Pct Auto 0.2 % (0.0-0.5); Lymphocytes Absolute Auto 1.8 10^3/uL (1.2-3.8); Mean Corpuscular HGB Conc 34.3 g/dL (29.9-35.2); Mean Corpuscular Hemoglobin 32.2 pg (26.7-34.0); Mean Corpuscular Volume 94.0 fL (81.0-99.0); Platelet Count 303 10^3/uL (150-450); Red Blood Count 4.19 10^6/uL (4.20-5.40); White Blood Count 6.0 10^3/uL (4.0-11.0)
[2024-12-07 09:50] VITALS: BP 142/71; PULSE 84; TEMP 36.1; O2SAT 95; BMI 24.2
--- NOTE | 2024-12-07 11:06 | PC.NURSE ---
(1055) Dr. Prabhakar at bedside and assesses left foot. Patient states that she fell on Friday. Left foot/toes are bruised and swollen. Foot is warm to the touch with strong pedal pulse. Patient states that she is able to walk on it without any discomfort. (1100) Left foot xray completed. Patient tolerated it well. (1105) Dr. Prabhakar back to bedside and reviews xray results with patient and patient's . Surgery will be cancelled until the swelling has subsided.
== END 2024-12-07 11:05 | disposition home or self-care (01) ==
LOC: SURGOUT 09:27
PROVIDERS: PCP Family Medicine; Visit Provider Podiatrist Foot & Ankle Surgery
DX: M20.22 Hallux rigidus, left foot (principal); Z53.8 Procedure and treatment not carried out for other reasons
CPT/HCPCS: 28750; 36415; 73630; 82948; 85025